=== PATIENT | female | born 1975 | race Caucasian/White ===

== ENCOUNTER 2020-08-27 07:50 | Outpatient (CLI) | payer OTHER ==
--- NOTE | 2020-08-27 08:55 | Ultrasound Report ---
Pelvic Ultrasound HISTORY: PELVIC PAIN. TECHNIQUE: Grayscale and color imaging performed. COMPARISON: None FINDINGS: Transabdominal and endovaginal imaging was performed. Uterus measures 10.5 x 5.4 x 5.4 cm with a 1.8 cm rounded mass near the region of the fundus which is slightly hypoechoic and most likely represents a fibroid. The endometrial echo complex measures 1.6 cm. Both ovaries are normal in size with a 1.3 cm simple-appearing cyst in the right ovary. No pelvic charlotte e fluid identified. There is preserved bilateral ovarian blood flow. IMPRESSION: 1. Probable tiny fibroid in the uterine fundus. 2. Small simple right ovarian cyst. Signer Name: Stephen Sprague MD Signed: 08/27/2020 8:51 AM Workstation Name: [id number]
--- NOTE | 2020-08-27 12:27 | Mammography Report ---
BILATERAL DIGITAL DIAGNOSTIC MAMMOGRAM WITH CAD CONVENTIONAL, 08/27/2020 BILATERAL LIMITED BREAST ULTRASOUND CLINICAL INFORMATION / INDICATION: The patient reports a lump in the left breast/arm. TECHNIQUE: Digital bilateral mammographic imaging was performed. Limited ultrasound was performed. Th is examination was interpreted with the benefit of Computer-Aided Detection (CAD) analysis. COMPARISON: 02/04/2015 from [facility] FINDINGS: Breast Density: The breasts are extremely dense, which lowers the sensitivity of mammography. MAMMOGRAPHIC FINDINGS: There has been interval development of multiple circumscribed nodular densitie s throughout the superior aspects of both breasts. ULTRASOUND FINDINGS: Targeted ultrasound evaluation was performed of the area of interest. Right breast: Sonographic evaluation of the superior aspect of the right breast demonstrates numerous cysts, clusters of cysts and fibrocystic change corresponding to the mammographic findings. No suspi cious solid mass is visualized. Left breast: Sonographic evaluation of the superior aspect of the left breast demonstrates numerous c ysts and fibrocystic changes also corresponding to the mammographic finding. Targeted sonographic evaluation of the patient's area of palpable concern is located in the left [address] st/upper arm area. There is an oval hypoechoic superficially located mass with associated vascularity measuring 1.1 x 0.4 cm. IMPRESSION: 1. Multiple bilateral breast cysts as described above representing a benign finding. 2. The patient's area of palpable concern in the left axilla/left arm appears to represent a dermal o r subdermal lesion and therefore clinical correlation is recommended. A sebaceous cyst could have thi s appearance. Follow up recommendation: Clinical exam BI-RADS Category 2: Benign. A "normal" or negative report should not discourage follow up or biopsy of a clinically significant f inding. A written summary of these findings will be mailed to the patient. The patient will be entered into a mammography reporting system which will generate a reminder letter for the patient's next appointmen t at the appropriate interval. According to the [employer], yearly mammograms are recommended starting at age 40 and continuing as long as a woman is in good health. Breast MRI is recommended for women with an rosales roximately 20-25% or greater lifetime risk of breast cancer, including women with a strong family his tory of breast or ovarian cancer and women who have been treated for Hodgkin's disease. Signer Name: Chandrika Manzanares MD Signed: 08/27/2020 12:22 PM Workstation Name: [email or web address]
== END 2020-08-27 07:51 | disposition home or self-care (01) ==
LOC: US 07:50
PROVIDERS: ATTEND Obstetrics & Gynecology
DX: N60.01 Solitary cyst of right breast (principal); N60.02 Solitary cyst of left breast; N83.291 Other ovarian cyst, right side; R22.9 Localized swelling, mass and lump, unspecified; N93.8 Other specified abnormal uterine and vaginal bleeding
CPT/HCPCS: 76830; 76856; 77066